=== PATIENT | male | born 1985 ===

== ENCOUNTER 2017-04-25 09:50 | Emergency (ER) | payer SELFPAY ==
[2017-04-25 09:57] VITALS: BP 110/76; PULSE 65; RESP 20; TEMP 98.6; O2SAT 100
[2017-04-25] MEDS ORDERED: Fluorescein 1 mg Ophthalmic Strip ONE (10:29)
[2017-04-25] MEDS ORDERED: Tetracaine 0.5% Ophth (OR ONLY) ONE (10:29)
--- NOTE | 2017-04-25 11:06 | C.PDOC ---
History Of Present Illness 31 year old patient presents to the ED complaining of right eye pain for the past 2 weeks. 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 He was drilling into a wall and something went into his eye. He notes he was not wearing eye protection. Patient reports he has slightly blurry vision. Patient denies discharge or fever. Time Seen by Provider: 04/25/17 10:30 Chief Complaint (Nursing): Eye Problem History Per: Patient History/Exam Limitations: no limitations Onset/Duration Of Symptoms: Other (2 weeks) Current Symptoms Are (Timing): Still Present Injury To Eye?: No Severity: Mild Pain Scale Rating Of: 3 Quality: "Pain" Associated Symptoms: FB Sensation Recent travel outside of the [place]: No Past Medical History Reviewed: Historical Data, Nursing Documentation, Vital Signs Vital Signs: Last Vital Signs Temp 98.6 F 04/25/17 09:56 Pulse 65 04/25/17 09:56 Resp 20 04/25/17 09:56 BP 110/76 04/25/17 09:56 Pulse Ox 100 04/25/17 13:47 Family History: States: Unknown Family Hx - Social History Hx Alcohol Use: No Hx Substance Use: No Review Of Systems Except As Marked, All Systems Reviewed And Found Negative. Constitutional: Negative for: Fever Eyes: Positive for: Pain (right), Vision Change (slight; blurry). Negative for : Other (discharge) Physical Exam - Physical Exam Appears: Non-toxic, No Acute Distress Skin: Warm, Dry Head: Atraumatic, Normacephalic Eye(s): bilateral: PERRL, EOMI, right: Other (injection) Ear(s): Bilateral: Normal Nose: Normal Oral Mucosa: Moist Neck: Normal ROM, Supple Chest: Symmetrical Cardiovascular: Rhythm Regular Respiratory: Normal Breath Sounds, No Rales, No Rhonchi, No Wheezing Extremity: Bilateral: Atraumatic Neurological/Psych: Oriented x3 Gait: Steady ED Course And Treatment O2 Sat by Pulse Oximetry: 100 (room air) Pulse Ox Interpretation: Normal Progress Note: Fluorescein eye exam was done. There was fluorescein uptake at the 11 and 12 o'clock positions. There are multiple foreign bodies in the in 11 and 12 o'clock positions. Case discussed with Dr. Juarez who is the Opthamologist online affiliate marketing manager. Patient is referred to follow up with the [facility] right after being discharged. Disposition - Disposition Disposition: HOME/ ROUTINE Disposition Time: 10:20 Condition: GOOD Additional Instructions: Thank you for letting us take care of you today. Your provider was Dr. Bass. You were treated for foreign bodies in the right eye. The emergency medical care you received today was directed at your acute symptoms. If you were prescribed any medication, please fill it and take as directed. It may take several days for your symptoms to resolve. Return to the Emergency Department if your symptoms worsen, do not improve, or if you have any other problems. Please contact your doctor or call one of the physicians/clinics you have been referred to that are listed on the Patient Visit Information form that is included in your discharge packet. Bring any paperwork you were given at discharge with you along with any medications you are taking to your follow up visit. Our treatment cannot replace ongoing medical care by a primary care provider (PCP) outside of the emergency department. Thank you for allowing the [facility] team to be part of your care today. Go to [facility] at [address] right now. Tell them that Dr. Juarez referred you to them and call him if they have any questions. Instructions: Eye Foreign Body (ED) - Clinical Impression Clinical Impression: Corneal foreign body, Pain in eye - Scribe Statement The provider has reviewed the documentation as recorded by the Scribbenjamin Selby Provider Attestation: All medical record entries made by the Scribe were at my direction and personally dictated by me. I have reviewed the chart and agree that the record accurately reflects my personal performance of the history, physical exam, medical decision making, and the department course for this patient. I have also personally directed, reviewed, and agree with the discharge instructions and disposition.
== END 2017-04-25 10:56 | disposition home or self-care (01) ==
LOC: C.ER 09:50
DX: T15.01XA Foreign body in cornea, right eye, initial encounter (principal); X58.XXXA Exposure to other specified factors, initial encounter; H57.11 Ocular pain, right eye